=== PATIENT | female | born 1975 | race Caucasian/White ===

== ENCOUNTER 2019-02-05 19:56 | Inpatient (IN) | payer OTHER ==
[~2019-02-05] VITALS: Ht 162.5 cm; Wt 95.8 kg
--- NOTE | ~2019-02-05 | EKG ---
[place], [place] ELECTROCARDIOGRAM REPORT NAME: TIFFANIE PRECIADO UNIT #: [id number] ROOM: 403 DOCTOR: MELODY DRAFT REPORT BIRTHDATE: [birth year] [facility] Test Date: 2019-02-05 Test Time: 20:47:50 Pat Name: TIFFANIE PRECIADO Department: Room: 403 Gender: F Mainframe Analyst: : 1975 Requested By: CAT SUTTON Order Number: [id number] Reading MD: Dirk Mims MD Measurements Intervals Coleman Rate: 69 P: 10 WA: 147 QRS: 17 QRSD: 84 T: 2 QT: 392 QTc: 420 Interpretive Statements Sinus rhythm Low voltage precordial leads Electronically Signed On 02-06-2019 14:16:12 PDT by Dirk Mims MD CM:EKGRPT:ELECTROCARDIOGRAM REPORT [id number] CAT BUSTOS DRAFT REPORT CAT SUTTON DO
[2019-02-05 19:58] VITALS: BP 202/113
[2019-02-05 20:16] VITALS: BP 180/92
[2019-02-05 20:59] LABS: BASO % 0.7 % (0.0-1.0); EOS # 0.2 10*3/uL (0.0-0.4); EOS % 2.9 % (1.0-4.0); HEMATOCRIT 37.2 % (37.0-47.0); HEMOGLOBIN 12.5 g/dl (12.0-16.0); LYMPH # 2.8 10*3/uL (1.3-4.4); LYMPH % 50.5 % (27.0-41.0); MEAN CELL VOLUME 91.4 fl (81.0-99.0); MEAN CORPUSCULAR HGB 30.7 pg (27.0-31.0); MEAN CORPUSCULAR HGB CONC 33.6 g/dl (33.0-37.0); MEAN PLATELET VOLUME 10.9 fl (9.6-12.3); MONO # 0.5 10*3/uL (0.1-1.0); MONO % 8.6 % (3.0-9.0); NEUT # 2.1 10*3/uL (2.3-7.9); NEUT % 37.1 % (47.0-73.0); PLATELET COUNT AUTOMATED 205 10*3/uL (130-400); RED BLOOD COUNT 4.07 10*6/uL (4.10-5.10); RED CELL DISTRI WIDTH 12.8 % (0-14.5); WHITE BLOOD COUNT 5.6 10*3/uL (4.8-10.8)
[2019-02-05 21:06] LABS: INTERNATIONAL NORM RATIO 0.9 (2.0-3.5)
[2019-02-05 21:16] LABS: ALKALINE PHOSPHATASE 48 U/L (45-117); BUN 11 mg/dl (7-24); CHLORIDE 106 mmol/L (98-107); CREATININE 0.73 mg/dL (0.55-1.02); POTASSIUM 3.7 mmol/L (3.5-5.1); SGOT/AST 9 IU/L (3-35); SGPT/ALT 15 U/L (12-78); SODIUM 140 mmol/L (136-145); TOTAL PROTEIN 6.9 gm/dL (6.4-8.2)
[2019-02-05 21:33] LABS: TROPONIN I < 0.015 ng/ml (<0.045)
[2019-02-05 22:08] VITALS: BP 136/86
--- NOTE | 2019-02-05 23:50 | NUR ---
A 43, admitted to , under the services of VALERIANO Alanis DO with a diagnosis of HTN. Chief complaint is HTN. Patient arrived via stretcher from ER. Monitor applied. Initial assessment completed. Vital signs taken and recorded. VALERIANO ALANIS DO notified of admission to the unit. Orders received. See assessment for past medical history, medications and allergies. Patient and/or family oriented to unit. [facility] reviewed. Clothing/patient valuable form completed. VANESSA CM
[2019-02-05] MEDS ORDERED: SYNTHROID25 MCG PO (23:59)
[2019-02-06] VITALS: BP 150/96
--- NOTE | 2019-02-06 00:21 | NUR ---
DR EDUARDO AWARE OF MANUAL BLOOD PRESSURE
[2019-02-06 04:00] VITALS: BP 124/79
[2019-02-06 06:16] LABS: BASO % 0.8 % (0.0-1.0); EOS # 0.2 10*3/uL (0.0-0.4); HEMATOCRIT 37.7 % (37.0-47.0); HEMOGLOBIN 12.7 g/dl (12.0-16.0); LYMPH # 2.2 10*3/uL (1.3-4.4); LYMPH % 42.4 % (27.0-41.0); MEAN CELL VOLUME 91.5 fl (81.0-99.0); MEAN CORPUSCULAR HGB 30.8 pg (27.0-31.0); MEAN CORPUSCULAR HGB CONC 33.7 g/dl (33.0-37.0); MEAN PLATELET VOLUME 11.2 fl (9.6-12.3); MONO # 0.5 10*3/uL (0.1-1.0); NEUT # 2.3 10*3/uL (2.3-7.9); NEUT % 43.6 % (47.0-73.0); PLATELET COUNT AUTOMATED 203 10*3/uL (130-400); RED BLOOD COUNT 4.12 10*6/uL (4.10-5.10); WHITE BLOOD COUNT 5.3 10*3/uL (4.8-10.8)
[2019-02-06 06:48] LABS: ALBUMIN 3.6 gm/dl (3.1-4.5); ALKALINE PHOSPHATASE 51 U/L (45-117); BUN 10 mg/dl (7-24); CHLORIDE 106 mmol/L (98-107); CHOLESTEROL 266 mg/dL (<200); CREATININE 0.75 mg/dL (0.55-1.02); HDL CHOLESTEROL 32 mg/dl (40-60); PHOSPHOROUS 3.7 mg/dL (2.5-4.9); POTASSIUM 3.6 mmol/L (3.5-5.1); SGOT/AST 5 IU/L (3-35); SGPT/ALT 15 U/L (12-78); SODIUM 140 mmol/L (136-145); TOTAL PROTEIN 6.4 gm/dL (6.4-8.2); TRIGLYCERIDES 578 mg/dl (<150)
[2019-02-06 07:02] LABS: FREE T4 0.96 ng/dl (0.76-1.46)
[2019-02-06 07:10] LABS: ACT PARTIAL THROMBO TIME 29.4 SECONDS (20.0-32.1); INTERNATIONAL NORM RATIO 0.9 (2.0-3.5)
[2019-02-06 07:45] VITALS: BP 156/98
--- NOTE | 2019-02-06 08:00 | NUR ---
DR FENRANDEZ MADE AWARE OF BP OF 156/98.
[2019-02-06 08:03] LABS: VITAMIN D, 25-HYDROXY 13.7 ng/mL (30-100)
--- NOTE | 2019-02-06 09:00 | NUR ---
Refrigerated Cargo Clerk in to talk to patient. Patient states lives at home with and children. There are few steps in the home. Physician: [facility]acy: [facility] [place] [facility]: none Patient's level of ADLs: INDEPENDENT Patient has working utilities: all working DME: none Follow-up physician's appointment after d/c: will be made by hospitalist nurse director upon discharge Does patient want to access PORTAL?: no Discharge plan discussed with patient, she states she lives at home with and children, is independent in adls and ambualtion, she states she will return home when able and denies any home needs. CHRIS HAMILTON
[2019-02-06] MEDS ORDERED: HYDR12.5C PO (09:50)
[2019-02-06] MEDS ORDERED: LISINOPRIL20 MG PO (09:50)
[2019-02-06] MEDS ORDERED: ATORVASTATIN CA40 M1 PO (09:50)
[2019-02-06] MEDS ORDERED: VITAMIN D32000 UNIT PO (09:53)
--- NOTE | 2019-02-06 11:25 | NUR ---
Discharge instructions reviewed with patient/family. Patient receptive and verbalizes understanding. Follow-up care arranged. Written instructions given to patient/family. IV site and funeral workers removed. CONSTANTINE ISAAC
== END 2019-02-06 11:25 | disposition home or self-care (01) | DRG 305 ==
LOC: ED 19:56 → 4E 22:26 → EDHOLD 22:26 → 4E 23:32
PROVIDERS: Emergency Medicine; Internal Medicine; ADMIT Internal Medicine
DX: I16.0 Hypertensive urgency (principal); F41.9 Anxiety disorder, unspecified; E83.41 Hypermagnesemia; E03.9 Hypothyroidism, unspecified; I10 Essential (primary) hypertension; E78.5 Hyperlipidemia, unspecified; E78.1 Pure hyperglyceridemia; Z88.0 Allergy status to penicillin; Z88.2 Allergy status to sulfonamides; Z87.891 Personal history of nicotine dependence; Z82.49 Family history of ischemic heart disease and other diseases of the circulatory system; Z83.438 Family history of other disorder of lipoprotein metabolism and other lipidemia; Z79.899 Other long term (current) drug therapy; Z79.890 Hormone replacement therapy

== ENCOUNTER → 2019-02-20 | Outpatient (CLI) | payer OTHER ==
[~2019-02-20] MED LIST: ATORVASTATIN CA40 M1 PO; HYDR12.5C PO; LISINOPRIL20 MG PO; SYNTHROID25 MCG PO; VITAMIN D32000 UNIT PO
== END | disposition home or self-care (01) ==
LOC: RESCLI 00:52
DX: I10 Essential (primary) hypertension (principal); E55.9 Vitamin D deficiency, unspecified; E03.9 Hypothyroidism, unspecified; E78.2 Mixed hyperlipidemia; Z79.899 Other long term (current) drug therapy

== ENCOUNTER 2020-09-23 14:39 | Emergency (ER) | payer OTHER ==
[~2020-09-23] VITALS: Ht 162.5 cm; Wt 97.5 kg
[2020-09-23 15:32] LABS: BASO % 0.6 % (0.0-1.0); EOS # 0.1 10*3/uL (0.0-0.4); EOS % 2.1 % (1.0-4.0); LYMPH # 1.6 10*3/uL (1.3-4.4); LYMPH % 26.2 % (27.0-41.0); MEAN CELL VOLUME 89.4 fl (81.0-99.0); MEAN CORPUSCULAR HGB 30.1 pg (27.0-31.0); MEAN CORPUSCULAR HGB CONC 33.7 g/dl (33.0-37.0); MEAN PLATELET VOLUME 10.6 fl (9.6-12.3); MONO # 0.4 10*3/uL (0.1-1.0); MONO % 6.9 % (3.0-9.0); NEUT % 63.9 % (47.0-73.0); PLATELET COUNT AUTOMATED 244 10*3/uL (130-400); RED BLOOD COUNT 4.25 10*6/uL (4.10-5.10); RED CELL DISTRI WIDTH 12.4 % (0-14.5); WHITE BLOOD COUNT 6.3 10*3/uL (4.8-10.8)
[2020-09-23 15:42] LABS: BILIRUBIN Negative (Negative); BLOOD Negative (Negative); CLARITY Clear (Clear); COLOR Yellow (Yellow); GLUCOSE Negative (Negative); KETONE Negative (Negative); LEUKO ESTERASE Negative (Negative); NITRITE Negative (Negative); SPECIFIC GRAVITY <= 1.005 (1.001-1.030); UROBILINOGEN 0.2 E.U./dl (0.0-1.0)
[2020-09-23 15:47] LABS: ALBUMIN 3.9 gm/dl (3.1-4.5); ALKALINE PHOSPHATASE 65 U/L (45-117); BUN 10 mg/dl (7-24); CHLORIDE 104 mmol/L (98-107); CREATININE 0.79 mg/dL (0.55-1.02); LIPASE 54 U/L (73-393); POTASSIUM 3.4 mmol/L (3.5-5.1); SGOT/AST 12 IU/L (3-35); SGPT/ALT 22 U/L (12-78); SODIUM 137 mmol/L (136-145); TOTAL PROTEIN 7.3 gm/dL (6.4-8.2)
[2020-09-23 15:51] LABS: BACTERIA TRACE
[2020-09-23 15:51] LABS: TROPONIN I < 0.015 ng/ml (<0.045)
[2020-09-23 15:54] LABS: ACT PARTIAL THROMBO TIME 31.3 SECONDS (20.0-32.1)
== END 2020-09-23 19:46 | disposition home or self-care (01) ==
LOC: ED 14:39
PROVIDERS: Physician Assistant
DX: F41.9 Anxiety disorder, unspecified (principal); R07.9 Chest pain, unspecified; Z88.0 Allergy status to penicillin; Z88.2 Allergy status to sulfonamides; Z79.899 Other long term (current) drug therapy; Z98.890 Other specified postprocedural states

== ENCOUNTER 2025-03-16 21:47 | Emergency (ER) | payer OTHER ==
[~2025-03-16] VITALS: Ht 162.5 cm; Wt 99.8 kg
[2025-03-16] MEDS ORDERED: CLINDAMYCIN HCL 300 MG CAPSULE PO ONE (23:45)
[2025-03-16] MEDS ORDERED: CLINDAMYCIN HC300 MG PO (23:47)
== END 2025-03-16 23:48 | disposition home or self-care (01) ==
LOC: ED 21:47
DX: K11.20 Sialoadenitis, unspecified (principal); E78.1 Pure hyperglyceridemia; F41.9 Anxiety disorder, unspecified; I10 Essential (primary) hypertension; E03.9 Hypothyroidism, unspecified; Z88.0 Allergy status to penicillin; Z88.2 Allergy status to sulfonamides; Z79.899 Other long term (current) drug therapy; Z87.891 Personal history of nicotine dependence; Z90.89 Acquired absence of other organs